=== PATIENT | male | born 1935 | race Caucasian/White ===

== ENCOUNTER 2016-08-12 19:59 | Inpatient (IN) | payer MEDICARE ==
[~2016-08-12] VITALS: Ht 172.7 cm; Wt 78.5 kg
[2016-08-12 22:05] LABS: RED BLOOD COUNT 4.63 M/UL (4.20-5.50); WHITE BLOOD COUNT 6.5 K/UL (4.5-11.0)
[2016-08-12 22:26] LABS: BUN/CREATININE RATIO 17 (0-10)
[2016-08-13] MEDS ORDERED: FENOFIBRATE145 MG PO (10:30)
[2016-08-13] MEDS ORDERED: LOSARTAN POTASS50 MG PO (10:31)
[2016-08-13] MEDS ORDERED: ZOCOR20 MG PO (10:31)
[2016-08-13] MEDS ORDERED: CENTRUM SILVER1 EAC2 PO (10:32)
[2016-08-13] MEDS ORDERED: FISH OIL 10001000 MG PO (10:32)
[2016-08-13] MEDS ORDERED: VITAMIN D33000 UNIT PO (10:32)
[2016-08-13] MEDS ORDERED: SIMBRINZA 1%-0.28 ML OU (10:33)
[2016-08-14 04:15] LABS: BUN/CREATININE RATIO 23 (0-10)
[2016-08-14 04:22] LABS: HEMOGLOBIN 14.8 gm/dl (14.0-17.5); RED BLOOD COUNT 4.55 M/UL (4.20-5.50); WHITE BLOOD COUNT 7.2 K/UL (4.5-11.0)
[2016-08-14] MEDS ORDERED: ASPIR-LOW81 MG PO (17:48)
[2016-08-14] MEDS ORDERED: MECLIZINE HCL25 MG PO (17:49)
== END 2016-08-14 18:40 | disposition home or self-care (01) | DRG 305 ==
LOC: ER1 19:59 → ZEROF 08-13 08:30 → PROG CARE 08-13 21:22
PROVIDERS: Physician Assistant; ADMIT Internal Medicine
DX: I16.0 Hypertensive urgency (principal); I10 Essential (primary) hypertension; R00.1 Bradycardia, unspecified; E78.5 Hyperlipidemia, unspecified; E78.1 Pure hyperglyceridemia; I65.21 Occlusion and stenosis of right carotid artery; R27.0 Ataxia, unspecified; R51 Headache; H40.9 Unspecified glaucoma; R42 Dizziness and giddiness; Z95.820 Peripheral vascular angioplasty status with implants and grafts; Z87.891 Personal history of nicotine dependence; Z79.899 Other long term (current) drug therapy; Z88.5 Allergy status to narcotic agent; Z88.6 Allergy status to analgesic agent; Z98.890 Other specified postprocedural states; Z90.49 Acquired absence of other specified parts of digestive tract; Z82.3 Family history of stroke
CPT/HCPCS: ECHO; 36415; 70450; 70544; 70551; 71010; 80053; 80061; 82550; 82553; 83735; 83874; 84443; 84484; 85025; 85610; 93005; 93306; 93880; 97535; 99285; J1650; J7030

== ENCOUNTER 2020-06-10 22:47 | Emergency (ER) | payer MEDICARE ==
[~2020-06-10 22:47] MED LIST: ASPIR-LOW81 MG PO; CENTRUM SILVER1 EAC2 PO; FENOFIBRATE145 MG PO; FISH OIL 10001000 MG PO; FLAGYL500 MG PO; HYDROCODON-ACE1 EAC1 PO; IBU600 MG PO; IMODIUM CAP 2 MG2 MG PO; LOSARTAN POTASS50 MG PO; MECLIZINE HCL25 MG PO; OMEPRAZOLE40 MG PO; SIMBRINZA 1%-0.28 ML OU; VITAMIN D33000 UNIT PO; ZOCOR20 MG PO; ZOFRAN ODT 4 MG4 MG PO; ZOFRAN ODT 4 MG4 MG SL
[2020-06-10 23:32] LABS: HEMOGLOBIN 13.2 gm/dl (14.0-17.5); RED BLOOD COUNT 4.08 M/UL (4.20-5.50); WHITE BLOOD COUNT 6.4 K/UL (4.5-11.0)
[2020-06-10 23:55] LABS: BUN/CREATININE RATIO 27 (0-10)
== END 2020-06-11 06:30 | disposition home or self-care (01) ==
LOC: ER1 22:47
PROVIDERS: Family Medicine
DX: R10.817 Generalized abdominal tenderness (principal); R07.9 Chest pain, unspecified; I10 Essential (primary) hypertension; E78.5 Hyperlipidemia, unspecified; Z88.5 Allergy status to narcotic agent; Z88.8 Allergy status to other drugs, medicaments and biological substances
CPT/HCPCS: 71045; 80053; 81001; 82550; 82553; 83690; 83874; 84484; 85025; 93005; 99285

== ENCOUNTER 2021-01-01 20:50 | Emergency (ER) | payer MEDICARE ==
[2021-01-01 22:00] LABS: HEMOGLOBIN 13.6 gm/dl (14.0-17.5); RED BLOOD COUNT 4.19 M/UL (4.20-5.50); WHITE BLOOD COUNT 9.7 K/UL (4.5-11.0)
[2021-01-01 22:22] LABS: BUN/CREATININE RATIO 23 (0-10)
[2021-01-01] MEDS ORDERED: ZOFRAN ODT 4 MG4 MG PO ×2 (23:03→23:45)
== END 2021-01-02 00:52 | disposition home or self-care (01) ==
LOC: ER1 20:50
PROVIDERS: Family Medicine
DX: R10.9 Unspecified abdominal pain (principal); R11.2 Nausea with vomiting, unspecified; R06.6 Hiccough; E78.5 Hyperlipidemia, unspecified; I10 Essential (primary) hypertension; Z88.8 Allergy status to other drugs, medicaments and biological substances
CPT/HCPCS: 71045; 80053; 82550; 82553; 83690; 83874; 84484; 85025; 96374; 99284; J2405

== ENCOUNTER → 2021-02-15 | Day surgery (SDC) | payer MEDICARE ==
[~2021-02-15] VITALS: Ht 172.7 cm; Wt 74.8 kg
[~2021-02-15] MED LIST changes: +AMLODIPINE BES2.5 MG PO; +ROCKLATAN 0.022.5 ML EYEBOTH; +VALSARTAN320 MG PO; +VITAMIN D PO
== END | disposition home or self-care (01) ==
LOC: OR 07:09
PROVIDERS: Internal Medicine Gastroenterology
PROC: 0DB78ZX Excision of Stomach, Pylorus, Via Natural or Artificial Opening Endoscopic, Diagnostic (ICD-10-PCS; 2021-02-15)
PROC: 0DB68ZX Excision of Stomach, Via Natural or Artificial Opening Endoscopic, Diagnostic (ICD-10-PCS; principal; 2021-02-15 12:10)
DX: K31.89 Other diseases of stomach and duodenum (principal); K31.819 Angiodysplasia of stomach and duodenum without bleeding; K21.00 Gastro-esophageal reflux disease with esophagitis, without bleeding; K22.2 Esophageal obstruction; K22.5 Diverticulum of esophagus, acquired; K31.5 Obstruction of duodenum; E78.5 Hyperlipidemia, unspecified; N20.0 Calculus of kidney; I10 Essential (primary) hypertension; E66.3 Overweight; Z68.25 Body mass index [BMI] 25.0-25.9, adult; Z20.822 Contact with and (suspected) exposure to COVID-19; Z90.49 Acquired absence of other specified parts of digestive tract; Z88.5 Allergy status to narcotic agent; Z79.51 Long term (current) use of inhaled steroids; Z79.899 Other long term (current) drug therapy; Z98.890 Other specified postprocedural states
CPT/HCPCS: J2704; J7040

== ENCOUNTER → 2021-08-25 | Outpatient (CLI) | payer MEDICARE | LOC: KOH-I 09:00 | DX: R63.4 Abnormal weight loss (principal) | CPT/HCPCS: 71046 ==